=== PATIENT | male | born 1955 | race Caucasian/White ===

== ENCOUNTER 2023-12-19 11:43 | Inpatient (IN) | payer OTHER ==
[2023-12-19] VITALS (86 sets, daily range): BP systolic 58–132; BP diastolic 36–78
[~2023-12-19] VITALS: Ht 177.8 cm; Wt 84.1 kg
[2023-12-19] MEDS ORDERED: SODIUM CHLORIDE 0.9% 1,000 ML IV ONE ×4 (11:50→13:17)
[2023-12-19] MEDS ORDERED: ISOSORBIDE MONO60 MG PO ×2 (11:53→11:57)
[2023-12-19] MEDS ORDERED: CELEBREX100 M1 PO (11:53)
[2023-12-19] MEDS ORDERED: CARVEDILOL12.5 MG PO (11:54)
[2023-12-19] MEDS ORDERED: LEVOTHYROXIN88 MC1 PO (11:55)
[2023-12-19] MEDS ORDERED: TRAZODONE HYDR150 MG PO (11:55)
[2023-12-19] MEDS ORDERED: METFORMIN500 M2 PO (11:55)
[2023-12-19] MEDS ORDERED: LISINOPRIL20 M1 PO (11:56)
[2023-12-19] MEDS ORDERED: PLAVIX75 MG PO (11:56)
[2023-12-19 12:28] LABS: BASO% 0.2 % (0-3); EOS% 2.5 % (0-8); HEMATOCRIT 37.4 % (39.0-50.0); HEMOGLOBIN 12.1 g/dl (14.0-18.0); IMMATURE GRANULOCYTES 0.3 % (0.0-5.0); LYMPH% 23.5 % (15-41); MEAN CELL VOLUME 103.3 fL CALC (80.0-100.0); MEAN CORPUSCULAR HGB 33.4 pG CALC (26.0-32.0); MEAN CORPUSCULAR HGB CONC 32.4 g/dL CAL (32.0-36.0); MONO% 7.2 % (2-13); NEUT# 6.21 thou/uL (1.82-7.42); NEUT% 66.3 % (42-76); RED BLOOD COUNT 3.62 mill/uL (4.70-6.10); RED CELL DISTRI WIDTH 13.3 % (11.5-15.5)
[2023-12-19 12:45] LABS: ALBUMIN 4.9 g/dL (3.2-5.0); BILIRUBIN, TOTAL 0.6 mg/dL (0.2-1.3); MAGNESIUM 2.3 mg/dL (1.6-2.3); TOTAL PROTEIN 8.6 g/dL (6.3-8.2)
[2023-12-19] MEDS ORDERED: NOREPINEPHRINE BITARTRATE 4 MG in DEXTROSE 5% 250 ML IV ONE (12:45)
[2023-12-19] MEDS ORDERED: SODIUM CHLORIDE 0.9% 500 ML IV ONE ×2 (12:45→17:40)
[2023-12-19 12:48] LABS: CREATININE 9.1 mg/dL (0.7-1.3)
[2023-12-19 13:15] LABS: TSH, 3RD GENERATION 1.08 uIU/mL (0.47 - 4.68)
[2023-12-19] MEDS ORDERED: ONDANSETRON HCl 4 MG/2 ML SDV IV ONE (14:15)
[2023-12-19] MEDS ORDERED: MORPHINE SULFATE 4 MG/ML VIAL IV ONE (14:15)
[2023-12-19 14:28] LABS: URINE BILIRUBIN - DIPSTICK Negative (NEGATIVE); URINE BLOOD DIPSTICK Moderate (NEGATIVE); URINE GLUCOSE - DIPSTICK Negative (NEGATIVE); URINE KETONE Negative (NEGATIVE); URINE LEUK ESTERASE Negative (NEGATIVE); URINE NITRITE - DIPSTICK Negative (Negative); URINE PH 5.5 (4.5-8.0); URINE PROTEIN - DIPSTICK 100 mg/dL (NEG-TRACE); URINE SPECIFIC GRAVITY 1.015; URINE UROBILINOGEN - DIPSTICK 0.2 E.U./dL (0.2)
[2023-12-19 14:29] LABS: URINE COLOR Yellow; URINE EPITHELIAL CELLS FEW EPI/hpf (0-FEW); URINE MUCUS MODERATE hpf (NONE-FEW)
[2023-12-19 14:58] LABS: POTASSIUM 4.9 mmol/l (3.5-5.1)
[2023-12-19 15:01] LABS: CREATININE 7.5 mg/dL (0.7-1.3)
[2023-12-19] MEDS ORDERED: ACETAMINOPHEN 325 MG/TAB PO PRN (16:35)
[2023-12-19] MEDS ORDERED: SODIUM CHLORIDE 0.9% 1,000 ML IV PRN (16:35)
[2023-12-19] MEDS ORDERED: MAGNESIUM HYDROXIDE 30 ML UDC PO PRN (16:35)
[2023-12-19] MEDS ORDERED: OXYCODO-APAP1 TA2 PO (17:39)
[2023-12-19] MEDS ORDERED: NOREPINEPHRINE BITARTRATE 4 MG in DEXTROSE 5% 250 ML IV PRN (17:40)
[2023-12-19] MEDS ORDERED: oxyCODONE 10MG/APAP 325 MG 1 COMBO TAB PO PRN (18:10)
[2023-12-19] MEDS ORDERED: traZODone HCL 50 MG/TAB PO SCH (21:00)
[2023-12-19] MEDS ORDERED: Heparin SODIUM (Porcine) 5,000 UNITS/ML SDV SC SCH (21:00)
[2023-12-20] VITALS (72 sets, daily range): BP systolic 14–157; BP diastolic 48–93
[2023-12-20 05:12] LABS: HEMATOCRIT 31.8 % (39.0-50.0); HEMOGLOBIN 10.4 g/dl (14.0-18.0); MEAN CELL VOLUME 103.2 fL CALC (80.0-100.0); MEAN CORPUSCULAR HGB 33.8 pG CALC (26.0-32.0); MEAN CORPUSCULAR HGB CONC 32.7 g/dL CAL (32.0-36.0); RED BLOOD COUNT 3.08 mill/uL (4.70-6.10)
[2023-12-20 05:28] LABS: BILIRUBIN, TOTAL 0.4 mg/dL (0.2-1.3); MAGNESIUM 1.8 mg/dL (1.6-2.3); POTASSIUM 4.4 mmol/l (3.5-5.1)
[2023-12-20 05:33] LABS: ALBUMIN 3.4 g/dL (3.2-5.0); CREATININE 3.2 mg/dL (0.7-1.3); TOTAL PROTEIN 6.2 g/dL (6.3-8.2)
[2023-12-20] MEDS ORDERED: LEVOTHYROXINE SODIUM 88 MCG TAB PO SCH (06:00)
[2023-12-20] MEDS ORDERED: DEXTROSE 250 ML IV PRN (07:45)
[2023-12-20] MEDS ORDERED: TAMSULOSIN HCL 0.4 MG CAP PO SCH (08:30)
[2023-12-20] MEDS ORDERED: CLOPIDOGREL BISULFATE 75 MG/TAB TAB PO SCH (09:00)
[2023-12-20] MEDS ORDERED: INSULIN LISPRO 100 UNITS/ML ML SC SCH (11:00)
[2023-12-21] VITALS (12 sets, daily range): BP systolic 130–160; BP diastolic 69–85
[2023-12-21 06:29] LABS: ALBUMIN 3.7 g/dL (3.2-5.0); POTASSIUM 4.7 mmol/l (3.5-5.1)
[2023-12-21 06:39] LABS: CREATININE 1.4 mg/dL (0.7-1.3)
[2023-12-21] MEDS ORDERED: TAMSULOSIN0.4 MG PO (07:11)
== END 2023-12-21 11:15 | disposition home or self-care (01) | DRG 683 ==
LOC: ED 11:43 → ED-I 15:00 → ED 15:12 → ICU 15:13
PROVIDERS: Family Medicine; Internal Medicine Nephrology; ADMIT Internal Medicine; ATTEND Internal Medicine
PROC: 05HM33Z Insertion of Infusion Device into Right Internal Jugular Vein, Percutaneous Approach (ICD-10-PCS; principal; 2023-12-19)
PROC: 3E043XZ Introduction of Vasopressor into Central Vein, Percutaneous Approach (ICD-10-PCS; 2023-12-19)
PROC: 0T9B70Z Drainage of Bladder with Drainage Device, Via Natural or Artificial Opening (ICD-10-PCS; 2023-12-19)
DX: N17.0 Acute kidney failure with tubular necrosis (principal); E87.1 Hypo-osmolality and hyponatremia; E87.20 Acidosis, unspecified; I95.9 Hypotension, unspecified; E86.9 Volume depletion, unspecified; R33.9 Retention of urine, unspecified; I10 Essential (primary) hypertension; E11.9 Type 2 diabetes mellitus without complications; I25.10 Atherosclerotic heart disease of native coronary artery without angina pectoris; D64.9 Anemia, unspecified; R31.9 Hematuria, unspecified; R80.9 Proteinuria, unspecified; F17.210 Nicotine dependence, cigarettes, uncomplicated; S00.211A Abrasion of right eyelid and periocular area, initial encounter; W19.XXXA Unspecified fall, initial encounter; Z95.1 Presence of aortocoronary bypass graft; Z79.84 Long term (current) use of oral hypoglycemic drugs; Z20.822 Contact with and (suspected) exposure to COVID-19